=== PATIENT | female | born 1985 | race Two or more races ===

== ENCOUNTER 2017-08-31 12:00 | Day surgery (SDC) | payer OTHER ==
[2017-08-31] MEDS ORDERED: MIDAZOLAM 1 MG/ML 2 ML INJ ×3 (14:38)
[2017-08-31] MEDS ORDERED: FENTAnyl 50 MCG/ML VIAL (14:38)
== END 2017-08-31 15:50 | disposition home or self-care (01) ==
LOC: GIL 12:00
DX: K92.1 Melena (principal); K63.89 Other specified diseases of intestine; K64.8 Other hemorrhoids
CPT/HCPCS: 45378; 84703